=== PATIENT | male | born 1980 | race Caucasian/White ===

== ENCOUNTER 2017-09-17 21:38 | Inpatient (IN) | payer OTHER ==
[2017-09-18] MEDS: ASPIRIN 325 MG TAB PO (00:08)
[2017-09-18 00:21] LABS: ADD MAN DIFF? NO
[2017-09-18 00:25] LABS: WHITE BLOOD COUNT 10.6 10^3/ul (4.8-10.8)
[2017-09-18 00:25] LABS: BASOPHILS % 0.3 % (0.0-2.0); EOSINOPHILS % 0.2 % (0.0-7.0); HEMATOCRIT 40.9 % (42.0-52.0); LYMPHOCYTES # 2.3 10^3/ul (0.8-2.9); LYMPHOCYTES % 21.7 % (15.0-51.0); MEAN CORPUSCULAR HEMOGLOBIN 30.5 pg (29.0-33.0); MEAN CORPUSCULAR HGB CONC 34.2 g/dl (32.0-37.0); MEAN CORPUSCULAR VOLUME 89.1 fl (82.0-101.0); MONOCYTE # 0.5 10^3/ul (0.3-0.9); MONOCYTES % 4.8 % (0.0-11.0); NEUTROPHIL # 7.7 10^3/ul (1.6-7.5); NEUTROPHILS % 72.6 % (39.0-77.0); PLATELET COUNT 248 10^3/UL (140-415); RED BLOOD COUNT 4.59 10^6/ul (4.70-6.10); RED CELL DISTRIBUTION WIDTH 12.4 % (11.5-14.5)
[2017-09-18 00:45] LABS: INR 0.99; PROTIME 13.2 Sec (11.9-14.9)
[2017-09-18 00:46] LABS: PARTIAL THROMBOPLASTIN TIME 31.1 Sec (25.0-35.0)
[2017-09-18 00:47] LABS: ALANINE AMINOTRANSFERASE 29 IU/L (13-69); ALBUMIN 4.5 g/dl (3.3-4.9); ALKALINE PHOSPHATASE 75 IU/L (42-121); ANION GAP 18 (8-16); ASPARTATE AMINO TRANSFERASE 25 IU/L (15-46); BILIRUBIN,INDIRECT 0.4 mg/dl (0-1.1); BILIRUBIN,TOTAL 0.4 mg/dl (0.2-1.3); BLOOD UREA NITROGEN 9 mg/dl (7-20); CALCIUM 9.1 mg/dl (8.4-10.2); CARBON DIOXIDE 26 mmol/L (21-31); CHLORIDE 101 mmol/L (97-110); CREATININE 0.72 mg/dl (0.61-1.24); GLUCOSE 116 mg/dl (70-220); POTASSIUM 3.9 mmol/L (3.5-5.1); SODIUM 141 mmol/L (135-144); TOTAL PROTEIN 7.5 g/dl (6.1-8.1)
[2017-09-18 00:59] LABS: B-TYPE NATRIURETIC PEPTIDE 52 PG/ML (0-125)
[2017-09-18 01:02] LABS: TROPONIN-I < 0.012 ng/ml (0.00-0.12)
[2017-09-18] MEDS ORDERED: BISACODYL (EC) 5 MG TAB PO (03:00)
[2017-09-18] MEDS ORDERED: morphine 2 MG INJ IV (03:00)
[2017-09-18] MEDS ORDERED: LORAZEPAM 2 MG INJ IV (03:00)
[2017-09-18] MEDS ORDERED: DOCUSATE SODIUM 100 MG CAP PO (03:00)
[2017-09-18] MEDS ORDERED: ACETAMINOPHEN 325 MG TAB PO (03:00)
[2017-09-18] MEDS ORDERED: NACL 0.9% 3 ML SYG IV (03:00)
[2017-09-18 03:56] LABS: ETHANOL < 10.0 mg/dl
[2017-09-18] MEDS ORDERED: ONDANSETRON 4 MG INJ IV (04:30)
[2017-09-18 08:29] LABS: ADD MAN DIFF? NO
[2017-09-18 08:32] LABS: BASOPHILS % 0.3 % (0.0-2.0); EOSINOPHILS % 0.3 % (0.0-7.0); HEMOGLOBIN 13.8 g/dl (14.0-18.0); LYMPHOCYTES # 1.7 10^3/ul (0.8-2.9); LYMPHOCYTES % 23.9 % (15.0-51.0); MEAN CORPUSCULAR HEMOGLOBIN 30.5 pg (29.0-33.0); MEAN CORPUSCULAR HGB CONC 34.5 g/dl (32.0-37.0); MEAN CORPUSCULAR VOLUME 88.5 fl (82.0-101.0); MEAN PLATELET VOLUME 8.3 fl (7.4-10.4); MONOCYTE # 0.6 10^3/ul (0.3-0.9); NEUTROPHIL # 4.7 10^3/ul (1.6-7.5); NEUTROPHILS % 67.2 % (39.0-77.0); PLATELET COUNT 251 10^3/UL (140-415); RED BLOOD COUNT 4.52 10^6/ul (4.70-6.10); RED CELL DISTRIBUTION WIDTH 12.5 % (11.5-14.5)
[2017-09-18 09:00] LABS: HEMOGLOBIN A1C 5.6 % (0-5.9)
[2017-09-18 09:01] LABS: ALANINE AMINOTRANSFERASE 28 IU/L (13-69); ALBUMIN 4.1 g/dl (3.3-4.9); ALBUMIN/GLOBULIN RATIO 1.41; ALKALINE PHOSPHATASE 69 IU/L (42-121); ANION GAP 17 (8-16); ASPARTATE AMINO TRANSFERASE 21 IU/L (15-46); BILIRUBIN,INDIRECT 0.7 mg/dl (0-1.1); BILIRUBIN,TOTAL 0.7 mg/dl (0.2-1.3); BLOOD UREA NITROGEN 8 mg/dl (7-20); CALCIUM 9.2 mg/dl (8.4-10.2); CARBON DIOXIDE 27 mmol/L (21-31); CHLORIDE 103 mmol/L (97-110); CHOL/HDL RATIO 2.6 RATIO; CHOLESTEROL 121 mg/dl (100-200); CREATININE 0.68 mg/dl (0.61-1.24); GLUCOSE 116 mg/dl (70-220); HDL CHOLESTEROL 46 mg/dl (27-67); LDL CHOLESTEROL,CALCULATED 44 mg/dl; POTASSIUM 3.9 mmol/L (3.5-5.1); SODIUM 143 mmol/L (135-144); TRIGLYCERIDES 153 mg/dl (0-149)
[2017-09-18] MEDS: ASPIRIN (EC) 81 MG TAB PO (09:02)
[2017-09-18 09:03] LABS: CREATINE KINASE 164 IU/L (23-200)
[2017-09-18] MEDS: METOPROLOL 25 MG TAB PO (09:03)
[2017-09-18] MEDS: CLOPIDOGREL 75 MG TAB PO (09:03)
[2017-09-18 09:15] LABS: CK INDEX 0.5
[2017-09-18 09:19] LABS: CK-MB 0.75 ng/ml (0.0-2.4); TROPONIN-I < 0.012 ng/ml (0.00-0.12)
[2017-09-18] MEDS: MULTIVITAMINS 10 ML, THIAMINE 100 MG, FOLIC ACID 1 MG in SOD CHLORIDE 0.9% 1,000 ML IVPB (11:18)
[2017-09-18 14:39] LABS: CREATINE KINASE 137 IU/L (23-200)
[2017-09-18 14:52] LABS: CK INDEX 0.5
[2017-09-18 14:53] LABS: CK-MB 0.66 ng/ml (0.0-2.4); TROPONIN-I < 0.012 ng/ml (0.00-0.12)
[2017-09-18] MEDS ORDERED: ATORVASTATIN 40 MG TAB PO (21:00)
== END 2017-09-18 18:00 | disposition home or self-care (01) | DRG 313 ==
LOC: FTE 21:38 → MS4 09-18 03:45
DX: R07.9 Chest pain, unspecified (principal); F41.9 Anxiety disorder, unspecified; F41.0 Panic disorder [episodic paroxysmal anxiety]; F10.129 Alcohol abuse with intoxication, unspecified; I25.10 Atherosclerotic heart disease of native coronary artery without angina pectoris; I10 Essential (primary) hypertension; I25.2 Old myocardial infarction; E78.5 Hyperlipidemia, unspecified
CPT/HCPCS: 71046; 80053; 80061; 80306; 82550; 82553; 82607; 82746; 83036; 83880; 84443; 84484; 85025; 85610; 85730; 93005; 93306; 99285-25

== ENCOUNTER 2018-04-29 13:57 | Emergency (ER) | payer OTHER ==
[2018-04-29] MEDS: ACETAMINOPHEN 325 MG TAB PO (15:11)
== END 2018-04-29 18:53 | disposition home or self-care (01) ==
LOC: FTE 13:57
DX: S80.11XA Contusion of right lower leg, initial encounter (principal); I10 Essential (primary) hypertension; I25.2 Old myocardial infarction; W22.8XXA Striking against or struck by other objects, initial encounter; Y92.9 Unspecified place or not applicable; Z79.01 Long term (current) use of anticoagulants; Z79.82 Long term (current) use of aspirin; Z98.61 Coronary angioplasty status
CPT/HCPCS: 73590; 93971; 99284-25